=== PATIENT | male | born 1975 | race African-American/Black ===

== ENCOUNTER 2020-10-06 13:23 | Emergency (ER) | payer OTHER ==
[~2020-10-06] VITALS: Ht 177.8 cm; Wt 87.4 kg
[2020-10-06 15:26] LABS: MICROSCOPIC NOT IND
[2020-10-06 15:38] LABS: BASOPHILS % (AUTO) 0 % (0-1); EOSINOPHILS % (AUTO) 1 % (1-7); LYMPHOCYTES % (AUTO) 20 % (22-44); MEAN CORPUSCULAR HEMOGLOBIN 31.3 pg (27.5-34.5); MEAN PLATELET VOLUME 7.3 fL (7.4-10.4); MONOCYTES % (AUTO) 5 % (2-9); NEUTROPHILS % (AUTO) 73 % (42-75); PLATELET COUNT 319 x10^3/uL (130-400); RED BLOOD COUNT 5.07 x10^6/uL (4.38-5.82); RED CELL DISTRIBUTION WIDTH 14.7 % (9.4-14.8)
[2020-10-06 15:43] LABS: ALANINE AMINOTRANSFERASE 25 U/L (12-78); ALBUMIN 3.7 g/dL (3.4-5.0); ANION GAP 5 mmol/L (5-15); CALCIUM 9.4 mg/dL (8.5-10.1); CHLORIDE 107 mmol/L (98-107); CREATININE 0.97 mg/dL (0.7-1.3)
[2020-10-06 15:45] LABS: ALKALINE PHOSPHATASE 95 U/L (45-117); BILIRUBIN,TOTAL 0.5 mg/dL (0.2-1.0); TOTAL PROTEIN 7.6 g/dL (6.4-8.2)
[2020-10-06 16:12] VITALS: BP 132/86
--- NOTE | 2020-10-06 20:25 | NUR ---
PATIENT ELOPED. STATING THAT HE HAD TO WALK DOWNTOWN AND COULD NOT STAY.
== END 2020-10-06 20:38 | disposition left against medical advice (07) ==
LOC: ED 13:30
DX: K57.32 Diverticulitis of large intestine without perforation or abscess without bleeding (principal); F17.210 Nicotine dependence, cigarettes, uncomplicated
CPT/HCPCS: 36415; 80053; 81003; 85025; 99283